=== PATIENT | female | born 1995 | race Caucasian/White ===

== ENCOUNTER 2019-12-21 00:23 | Observation (INO) | payer MEDICAID ==
[2019-12-21] MEDS ORDERED: ACETAMINOPHEN 500 MG TABLET PO PRN (00:30)
[2019-12-21 00:52] LABS: BILIRUBIN,URINE NEGATIVE (NEG); CLARITY,URINE CLEAR; COLOR,URINE YELLOW; NITRITE,URINE NEGATIVE (NEG); PH,URINE 6.5 (<5.0-8.0); PROTEIN,URINE NEGATIVE (NEG-TRACE); UROBILINOGEN,URINE 0.2 mg/dL (0.2 mg/dL)
[2019-12-21 00:57] LABS: BACTERIA,URINE 0 /HPF (0-FEW); RBC,URINE 0 /HPF (0-2); SQUAMOUS EPITHELIAL CELL,UR MOD /LPF
[2019-12-21 00:59] LABS: AMPHETAMINE/METHAMPHETAMINE NEG (NEG); BARBITURATES NEG (NEG); BENZODIAZEPINES NEG (NEG); CANNABINOIDS NEG (NEG); COCAINE NEG (NEG); METHADONE NEG (NEG); OPIATES NEG (NEG); PHENCYCLIDINE NEG (NEG)
[2019-12-21] MEDS ORDERED: IV RINGERS,LACTATED 1000ML 1,000 ML IV SCH (01:00)
== END 2019-12-21 02:27 | disposition home or self-care (01) ==
LOC: 3 SO LND 00:23
PROVIDERS: ADMIT Obstetrics & Gynecology; ATTEND Obstetrics & Gynecology
DX: O26.893 Other specified pregnancy related conditions, third trimester (principal); O13.3 Gestational [pregnancy-induced] hypertension without significant proteinuria, third trimester; Z3A.38 38 weeks gestation of pregnancy; Z79.899 Other long term (current) drug therapy; R10.9 Unspecified abdominal pain
CPT/HCPCS: 80307; 81001; G0378; G0379

== ENCOUNTER 2021-03-08 01:56 | Observation (INO) | payer SELFPAY ==
[~2021-03-08] VITALS: Ht 160 cm; Wt 63.5 kg
[2021-03-08] MEDS ORDERED: IV RINGERS,LACTATED 1000ML 1,000 ML IV PRN (02:00)
[2021-03-08 02:51] LABS: AMNIO PT NEGATIVE
[2021-03-08] MEDS ORDERED: ACETAMINOPHEN 325 MG TABLET. PO PRN (03:15)
== END 2021-03-08 05:55 | disposition home or self-care (01) ==
LOC: MERGE 01:56 → 3 SO LND 01:56
PROVIDERS: ADMIT Obstetrics & Gynecology; ATTEND Obstetrics & Gynecology
DX: O26.893 Other specified pregnancy related conditions, third trimester (principal); R10.9 Unspecified abdominal pain; Z3A.30 30 weeks gestation of pregnancy
CPT/HCPCS: 36415; 59025; 84112; 87653; 96360; 96361; G0378; G0379; J7120

== ENCOUNTER 2021-03-19 22:21 | Inpatient (IN) | payer MEDICAID ==
[~2021-03-19] VITALS: Ht 157.5 cm; Wt 64.4 kg
[2021-03-19] MEDS: IV RINGERS,LACTATED 1000ML 1,000 ML IV SCH (23:30)
[2021-03-19 23:40] LABS: BILIRUBIN,URINE NEGATIVE (NEG); CLARITY,URINE CLEAR; COLOR,URINE YELLOW; NITRITE,URINE NEGATIVE (NEG); PH,URINE 7.5 (<5.0-8.0); PROTEIN,URINE NEGATIVE (NEG-TRACE)
[2021-03-19 23:55] LABS: BARBITURATES NEG (NEG); BENZODIAZEPINES NEG (NEG); CANNABINOIDS NEG (NEG); COCAINE NEG (NEG); METHADONE NEG (NEG); OPIATES NEG (NEG); PHENCYCLIDINE NEG (NEG)
[2021-03-19 23:56] LABS: AMPHETAMINE/METHAMPHETAMINE POS (NEG)
[2021-03-20 00:13] LABS: BACTERIA,URINE FEW /HPF (0-FEW)
--- NOTE | 2021-03-20 03:14 | NUR ---
After speaking with Dr. Saldivar he states she can go home if found that she is not a danger to herself. Team to evalute her mental health this AM. Patient now states she is not currently feeling suicidal but has had thoughts in the past.
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
[2021-03-20] MEDS: IV RINGERS,LACTATED 1000ML 1,000 ML IV SCH ×2 (07:30→15:30)
[2021-03-20 08:29] VITALS: BP 112/75
--- NOTE | 2021-03-20 11:36 | PDOC1 ---
[facility] H&P Date of Admission: Date of Admission: Mar 19, 2021 at 22:21 History of Present Illness: EDC: 05/11/21 LMP: unk 25y @ 32.4 by 1st trimester u/s who presented to L&D with abd pain. She felt like the baby was coming so she called EMS. The pain is better this am, but is still present. It is located in lower midline of her abd. She has not established care to this point. During her interview the pt reported SI. The pt states that she is depressed, with life in general. PMH: Seizure do, asthma, Hep C, kidney issue PSH: left ankle Meds: PNV All: Amoxicillin, PCN OBHx: TSVD x 4, SAB x 1 SH: 1.5 PPD, no EtOH FH: thyroid, HTN Allergies: Coded Allergies: Penicillins (Verified Allergy, Mild, Hives, 03/07/21) diphenhydramine (Verified Allergy, Unknown, Hives, 03/20/21) ondansetron (Verified Allergy, Unknown, Unknown, 03/20/21) Physical Exam: PE: GENERAL: No apparent distress. Alert and oriented. HEENT: Head normocephalic, atraumatic. NECK: Supple LUNGS: Clear to auscultation. HEART: RRR, S1, S2 present, pulses intact ABDOMEN: Soft, positive bowel sounds. EXTREMITIES: No cyanosis or edema. NEUROLOGIC: Normal speech, normal tone PSYCHIATRIC: Normal affect, normal mood. SKIN: No ulceration. FHT: 130s +acels/no decels/mLTV [place]: quiet SVE: closed/50/-2 Labs: Laboratory Tests Test 03/19/21 23:10 Urine Collection Type Unknown Urine Color Yellow Urine Clarity Clear Urine pH 7.5 (<5.0-8.0) Urine Specific [place] 1.015 (1.000-1.030) Urine Protein Negative mg/dL (NEG-TRACE) Urine Glucose (UA) Negative mg/dL (NEG) Urine Ketones (Stick) Negative mg/dL (NEG) Urine Blood Negative (NEG) Urine Nitrite Negative (NEG) Urine Bilirubin Negative (NEG) Urine Urobilinogen Dipstick 1.0 mg/dL (0.2 mg/dL) Urine Leukocyte Esterase Small (NEG) Urine RBC 1-2 /HPF (0-2) Urine WBC 5-10 /HPF (0-4) Urine Squamous Epithelial Cells Few /LPF Urine Bacteria Few /HPF (0-FEW) Urine Opiates Screen Neg (NEG) Urine Methadone Screen Neg (NEG) Urine Barbiturates Neg (NEG) Urine Phencyclidine Screen Neg (NEG) Urine Amphetamine/Methamphetamine Pos (NEG) Urine Benzodiazepines Screen Neg (NEG) Urine Cocaine Screen Neg (NEG) Urine Cannabinoids Screen Neg (NEG) Urine Ethyl Alcohol Neg (NEG) Assessment & Plan: A/P 25y @ 32.4 by 1st trimester u/s 1.) Abd improved, not in PTL. 2.) Depression reported SI, PAT team consulted 3.) Questionable could not find [facility] records, likely has not been to either [facility] or [facility] 4.) Seizure do does not have PCP or neurologist. On no meds. 5.) Hep C dxed prior to . Stressed the importance of establishing with a PCP 6.) Kidney issue Cr nml 7.) Asthma 8.) Anemia Hgb 9.4 8.) UDS pos for amphetamine/Methamph again 9.) Covid neg 10.) Fetus cat I FHT 11.) GBS unk no in labor 12.) Awaing PAT teams recs DEVANG OH MD Mar 20, 2021 11:36
[2021-03-20 12:23] VITALS: BP 126/74
--- NOTE | 2021-03-20 13:57 | NUR ---
Pat grocery team member here to assess pt.
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
--- NOTE | 2021-03-20 15:30 | NUR ---
Pt. awake and agitated states she "wants to , her life has no purpose."
[2021-03-20 19:14] VITALS: BP 113/66
[2021-03-21 02:21] VITALS: BP 107/64
[2021-03-21 08:24] VITALS: BP 105/64
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
--- NOTE | 2021-03-21 11:04 | EKG ---
[facility] [address] [place] [address] Test Date: 2021-03-21 Test Time: 10:57:50 Pat Name: RONNA OMALLEY Department: Room: [facility] Gender: F Intake Clerk: ALBERTA : 1995 Requested By: DEVANG OH Order Number: [id number] Reading MD: Measurements Intervals [place] Rate: 100 P: 38 [place]: 124 QRS: 28 QRSD: 86 T: 13 QT: 346 QTc: 449 Interpretive Statements SINUS RHYTHM NORMAL ECG RI6.02 No previous ECG available for comparison
[2021-03-21 11:28] LABS: BASO % 1 % (0-3); EOS # 0.1 x10^3/uL (0.0-0.7); EOS % 1 % (0-3); HEMATOCRIT 24.7 % (36.0-47.0); HEMOGLOBIN 8.4 g/dL (12.0-15.5); LYMPH # 1.6 x10^3/uL (1.0-4.8); LYMPH % 25 % (24-48); MEAN CORPUSCULAR HEMOGLOBIN 26 pg (25-35); MEAN CORPUSCULAR HGB CONC 34 g/dL (31-37); MEAN CORPUSCULAR VOLUME 77 fL (79-100); MONO # 0.4 x10^3/uL (0.0-1.1); MONO % 6 % (0-9); NEUT # 4.2 x10^3/uL (1.8-7.7); NEUT % 67 % (31-73); PLATELET COUNT 234 x10^3/uL (140-400); RED BLOOD COUNT 3.21 x10^6/uL (3.50-5.40); RED CELL DISTRIBUTION WIDTH 13.3 % (11.5-14.5); WHITE BLOOD COUNT 6.3 x10^3/uL (4.0-11.0)
[2021-03-21 11:31] LABS: CALCIUM 8.1 mg/dL (8.5-10.1); CREATININE 0.5 mg/dL (0.6-1.0); GFR 149.1; POTASSIUM 3.7 mmol/L (3.5-5.1)
[2021-03-21 11:52] VITALS: BP 120/82
[2021-03-21 15:23] VITALS: BP 121/84
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
[2021-03-21 20:00] VITALS: BP 102/64
[2021-03-22 01:00] VITALS: BP 110/79
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
[2021-03-22 08:30] VITALS: BP 118/81
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
--- NOTE | 2021-03-22 10:48 | NUR ---
SS following up. Pt screened for involuntary placement. [facility] declined due to pt being . Referral being sent to [facility], ; fax [phone]. COVID19 PCR pending at this time for placement. Referral phoned and faxed to [facility]. Brock from PAT Team assisting. SS will continue to follow.
[2021-03-22 12:25] VITALS: BP 122/77
[2021-03-22 16:19] VITALS: BP 119/72
[2021-03-22 21:00] VITALS: BP 118/61
--- NOTE | 2021-03-23 07:06 | NUR ---
slept through the night with frequent tossing and turning. Boyfriend was here at beginning of shift and then told that he would return today. Pt only called out for something to drink. No c/o pain or any other discomforts this shift. Flat affect with exchanges and withdrawn.
--- NOTE | 2021-03-23 08:00 | NUR ---
Pt. calm and cooperative this morning. States would like to be discharged today.
[2021-03-23 09:09] VITALS: BP 115/73
--- NOTE | 2021-03-23 09:14 | PDOC ---
EVENT PRODUCER PROGRESS NOTE Date of Service: DATE: 03/23/21 TIME: 09:13 Subjective: The pt feels well today. She wonders if she can go home. Explained that we dont want to send her home if she may hurt herself. She states that she wont. Informed the pt that decision would be up to the PAT team. Objective: Vital Signs: Vital Signs Date Time Temp Pulse Resp B/P (MAP) Pulse Ox O2 Delivery O2 Flow Rate FiO2 03/22/21 08:30 97.9 98 118/81 (93) 98 97.9 03/22/21 12:25 16 Room Air Vital Signs Date Time Temp Pulse Resp B/P (MAP) Pulse Ox O2 Delivery O2 Flow Rate FiO2 03/23/21 09:09 98.1 61 20 115/73 (87) Room Air 98.1 03/22/21 16:19 96 Physical Exam: GENERAL: No apparent distress. Alert and oriented. HEENT: Head normocephalic, atraumatic. NECK: Supple LUNGS: Clear to auscultation. HEART: RRR, S1, S2 present, pulses intact ABDOMEN: Soft, positive bowel sounds. EXTREMITIES: No cyanosis or edema. NEUROLOGIC: Normal speech, normal tone PSYCHIATRIC: Normal affect, normal mood. SKIN: No ulceration. Assessment & Plan: A/P 25y @ 33.0 by 1st trimester u/s 1.) Abd resolved 2.) Depression reported SI, PAT team consulted 3.) Social homeless and drug abuse, SW consulted 4.) Questionable could not find [facility] records, likely has not been to either [facility] or [facility] 5.) Seizure do does not have PCP or neurologist. On no meds. 6.) Hep C dxed prior to . Stressed the importance of establishing with a PCP 7.) Kidney issue Cr nml 8.) Asthma 9.) Anemia Hgb 8.4 8.) UDS pos for amphetamine/Methamph again 9.) Fetus cat I FHT 10.) GBS unk not in labor 11.) Awaiting placement by PAT teams and social work DEVANG OH MD Mar 23, 2021 09:14
--- NOTE | 2021-03-23 09:54 | NUR ---
SS following up. Brock from PAT team met with pt. Pt no longer suicidal. Pt alert. Brock discussed with Dr. Saldivar. Pt cleared to return to home with boyfriend and safety plan. Pt follows at [facility] for behavioral health for Bipolar and OB care. Pt being provided with referral to [facility] for outpatient substance treatment. Anticipate discharge today.
--- NOTE | 2021-03-23 10:00 | NUR ---
Depression Suicide screens all completed by Brock from the [facility] team
--- NOTE | 2021-03-23 10:15 | NUR ---
PAT team Brock states to RN that not is not suicidal and 1:1 was removed. Pt. was given pt. belongings of clothing and shoes.
--- NOTE | 2021-03-23 10:20 | NUR ---
FHT's in 140's
--- NOTE | 2021-03-23 11:00 | NUR ---
Pt. was given verbal and written discharge instructions. Pt. verbalized understanding about labor precautions and was given and reviewed Safety Plan filled out by Brock from the PAT team. Pt. also verbalized understanding about appointment tomorrow with [facility] at 0920 in the morning and to be there at 0900 arrival time for OB care. Pt. verbalized understanding without any questions or concerns.
--- NOTE | 2021-03-23 11:20 | NUR ---
Pt.'s boyfriend at [employer] called, waiting on cab to transport pt to [facility] to a Homeless senior care.
[2021-03-23 11:58] VITALS: BP 136/79
--- NOTE | 2021-03-23 12:10 | NUR ---
Pt. ambulates to hospital exit were taxi awaits.
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
== END 2021-03-23 12:15 | disposition home or self-care (01) | DRG 832 ==
LOC: 3 SO LND 22:21 → 3 NORTH 03-20 12:00 → OBSVTOIN 03-21 15:12 → MERGE 03-21 15:12
PROVIDERS: ADMIT Obstetrics & Gynecology; ATTEND Obstetrics & Gynecology
DX: O99.343 Other mental disorders complicating pregnancy, third trimester (principal); R45.851 Suicidal ideations; O99.323 Drug use complicating pregnancy, third trimester; O99.353 Diseases of the nervous system complicating pregnancy, third trimester; D64.9 Anemia, unspecified; F32.9 Major depressive disorder, single episode, unspecified; G40.909 Epilepsy, unspecified, not intractable, without status epilepticus; J45.909 Unspecified asthma, uncomplicated; Z3A.32 32 weeks gestation of pregnancy; Z20.822 Contact with and (suspected) exposure to COVID-19; Z59.0 Homelessness; F15.10 Other stimulant abuse, uncomplicated; O99.513 Diseases of the respiratory system complicating pregnancy, third trimester; O99.013 Anemia complicating pregnancy, third trimester
CPT/HCPCS: 36415; 80048; 80307; 81001; 85025; 87086; 87426; 93005; G0378; G0379; U0003; U0005